=== PATIENT | male | born 2005 | race Caucasian/White ===

== ENCOUNTER 2024-02-12 17:50 | Outpatient (REF) | payer OTHER, SELFPAY ==
--- NOTE | ~2024-02-12 | MR_ITS ---
EXAMINATION: MR LUMBAR SPINE WITHOUT CONTRAST CLINICAL INFORMATION: Radiculopathy COMPARISON: None TECHNIQUE: MRI of the lumbar spine was obtained using routine sequences without contrast. FINDINGS: There is transitional lumbosacral anatomy with lumbarized S1 vertebral body, rudimentary S1-S2 disc space, and fusion across the S1-S2 junction on the left and good articulation versus fusion on the right. Articulating bilateral transverse processes at L1. For the purposes of this examination the L5-S1 disc space can be seen on image 23, series 5. Slight lower lumbar levocurvature. Normal lumbar lordosis is preserved. Trace retrolisthesis at L4-L5. Vertebral body heights are maintained. There is no suspicious osseous lesion. Disc desiccation and moderate disc height loss at L5-S1, mild to moderate posterior disc height loss at L4-L5, and mild to moderate disc height loss in the lower thoracic spine. Multilevel small endplate Schmorl's nodes are seen. Level by level detail as follows: L1-L2: No spinal canal or neural foraminal stenosis. L2-L3: No spinal canal or neural foraminal stenosis. L3-L4: Small left foraminal disc protrusion. No spinal canal or neural foraminal stenosis. L4-L5: Annular disc bulge with inferiorly migrated broad-based paracentral/left subarticular to left lateral recess disc extrusion compressing the traversing left L5 nerve root. Mild bilateral facet arthrosis. Mild spinal canal narrowing. Patent neural foramina. L5-S1: Annular disc bulge with right subarticular annular fissure. Bilateral facet hypertrophy. No spinal canal stenosis. Mild right without left neural foraminal encroachment. The conus medullaris terminates at the level of L2-L3. The distal spinal cord is normal in appearance. No epidural fluid collection, hematoma, or mass. No significant abnormalities of the paraspinal musculature. Limited evaluation of the intra-abdominal structures without significant abnormalities. The abdominal aorta is of normal contour and caliber. MR/MR lumbar spine wo con IMPRESSION: 1. Transitional lumbosacral anatomy with lumbarized S1 vertebral body and articulating bilateral transverse processes at L1. 2. At L4-L5, there is an inferiorly migrated broad-based paracentral/left subarticular to left lateral recess disc extrusion compressing the traversing left L5 nerve root. Mild spinal canal narrowing at this level. 3. At L5-S1, there is a right subarticular annular fissure. Mild right neural foraminal encroachment.
== END 2024-02-12 17:51 | disposition home or self-care (01) ==
LOC: HO.MRI 17:50
PROVIDERS: Visit Provider Family Medicine Sports Medicine
DX: M54.16 Radiculopathy, lumbar region (principal)
CPT/HCPCS: 72148